=== PATIENT | female | born 1960 | race Caucasian/White ===

== ENCOUNTER 2024-11-08 20:42 | Emergency (ER) | payer BC, SELFPAY ==
[2024-11-08] VITALS (13 sets, daily range): BP systolic 120–131; BP diastolic 48–63; PULSE 52–66; RESP 10–20; TEMP 36.6; O2SAT 94–99
--- NOTE | ~2024-11-08 | XR_ITS ---
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 COMPARISON: None available TECHNIQUE: PA and lateral views of the chest. FINDINGS The cardiomediastinal silhouette is unremarkable. The lungs are clear. IMPRESSION: No focal infiltrate or effusion. Reviewed, dictated and finalized at location A.
--- OUTSIDE RECORDS SUMMARY | 2024-11-08 20:45 | XMS_ITS ---
Author Organization Unknown ENCOUNTERS Encounter Performer Location Date Diagnosis Diagnosis Status Pre Admit [facility] [address] [place] [id number] *Note: Encounters from your own facility or health system may be excluded. Allergies, Adverse Reactions, Alerts Allergen Type Severity Identification Date Penicillins drug allergy 3 [id number] Medications Name Date Quantity Days Supplied GPI Number
--- NOTE | 2024-11-08 20:47 | ECG_ITS ---
Test Date: 2024-11-08 20:48:45 Measurements Intervals [place] Rate: 64 P: 45 MI: 180 QRS: -16 QRSD: 84 T: 30 QT: 384 QTc: 396 Interpretive Statements SINUS RHYTHM LOW QRS VOLTAGE IN PRECORDIAL LEADS BORDERLINE R WAVE PROGRESSION, ANTERIOR LEADS BORDERLINE ECG No previous ECG available for comparison Electronically Signed On 11-09-2024 07:30:27 CDT by Ike Chavarria D.O.
[2024-11-08 21:05] LABS: Hematocrit 41.4 % (37.0-47.0); Hemoglobin 13.5 g/dL (12.0-15.0); Immature Granulocyte Percent A 0.3 % (0-0.5); Lymphocytes Absolute Auto 2.39 K/mm3 (0.9-3.2); Mean Corpuscular HGB Conc 32.6 g/dl (32-36); Mean Corpuscular Hemoglobin 29.9 pg (26-34); Mean Corpuscular Volume 91.6 fl (80-100); Nucleated Red Blood Cells Absolute Auto 0.000 K/mm3 (0.0-0.012); Nucleated Red Blood Cells Perc 0.0 % (0.0-0.2); Platelet Count Result 274 k/mm3 (150-375); Red Blood Count 4.52 M/mm3 (4.2-5.4); White Blood Count 7.0 K/mm3 (4.5-10.0)
[2024-11-08 21:21] LABS: INR 0.9; Prothrombin Time 12.5 Seconds (11.1-14.7)
[2024-11-08 21:22] LABS: Partial Thromboplastin Time 26.5 Seconds (22.3-36.8)
--- NOTE | 2024-11-08 22:16 | ED.CHESTPAIN ---
HPI - Chest Pain General Chief Complaint: Chest Pain Stated Complaint: chest pain Time Seen by Provider: 11/08/24 21:54 History of Present Illness HPI narrative: 64-year-old otherwise healthy female with no chronic medical conditions aside from previous peptic ulcer trip you to NSAID use presenting to the emergency department with left-sided chest discomfort and some pleuritic chest pain and shortness of breath. Symptoms onset for 2 days and the chest pain started earlier today. States that she feels like she can not get a good deep breath and she gets a squeezing sensation left side of her chest intermittent in nature. Worse with deep breathing but not worse with exertion or moving her extremity. States that her symptoms started today while she was eating dinner. Feels very focal in the left anterior portion of the chest that does not radiate towards the back of the neck/jaw. No other associated symptoms such as nausea, vomiting, abdominal pain, back pain, fever, chills, traumatic injuries. No history of DVT or PE, no recent long travel, immobilization or surgical procedures. Was otherwise in her normal state of health, does not take any chronic medications. Told she previously had an ulcer and cannot take NSAIDs. Endorses being a moderate drinker. Related Data Home Medications ?Medication ?Instructions ?Recorded ?Confirmed ?Last Taken ?Type No Home Medications 11/08/24 11/08/24 Unknown History Allergies Allergy/AdvReac Type Severity Reaction Status Date / Time ibuprofen Allergy Mild Ulcers Verified 11/08/24 21:00 Penicillins Allergy Unknown Skin Verified 11/08/24 21:00 Reaction Review of Systems Review of Systems: As reviewed above in HPI [facility] Family History Family History Other Family history of cardiovascular disease Social History Social History Smoking status: Never smoker Alcohol intake: never Exam Narrative: GENERAL: [Well-appearing, well-nourished, and in no acute distress.] HEAD: [Normocephalic, atraumatic.] EYES: [PERRLA and EOMI.] ENT: Nares clear, no rhinorrhea or epistaxis. Mucous membranes moist. NECK: Supple. CHEST: [Clear to auscultation. No respiratory distress.] Reproducible tenderness to palpation left anterior chest wall without any overlying skin changes, discoloration or excoriation HEART: [Regular rate and rhythm]. No murmur heard. [Normal peripheral pulses.] ABDOMEN: [Soft, nondistended], [nontender], [No rigidity or guarding] EXTREMITIES: Normal range of motion. [No edema.] SKIN: Warm, dry, no rash. NEURO: [No focal deficits]. Alert and oriented [x3.] PSYCH: [Normal mood and affect.] Course Vital Signs Vital signs: Vital Signs Temperature 36.6 C 11/08/24 20:47 Pulse Rate 61 11/08/24 20:47 Respiratory Rate 18 11/08/24 20:47 Blood Pressure 120/48 L 11/08/24 20:47 Pulse Oximetry 98 11/08/24 20:47 Oxygen Delivery Room Air 11/08/24 20:47 Temperature 36.6 C 11/08/24 20:47 Pulse Rate 55 L 11/09/24 01:52 Respiratory Rate 15 11/09/24 01:52 Blood Pressure 128/63 11/09/24 01:52 Pulse Oximetry 98 11/09/24 01:52 Oxygen Delivery Room Air 11/08/24 22:28 MDM - Chest Pain MDM Narrative Medical decision making narrative: 64-year-old otherwise healthy female with no chronic medical conditions aside from previous peptic ulcer trip you to NSAID use presenting to the emergency department with left-sided chest discomfort and some pleuritic chest pain and shortness of breath. Symptoms onset for 2 days and the chest pain started earlier today. States that she feels like she can not get a good deep breath and she gets a squeezing sensation left side of her chest intermittent in nature. Worse with deep breathing but not worse with exertion or moving her extremity. States that her symptoms started today while she was eating dinner. Feels very focal in the left anterior portion of the chest that does not radiate towards the back of the neck/jaw. No other associated symptoms such as nausea, vomiting, abdominal pain, back pain, fever, chills, traumatic injuries. No history of DVT or PE, no recent long travel, immobilization or surgical procedures. Was otherwise in her normal state of health, does not take any chronic medications. Told she previously had an ulcer and cannot take NSAIDs. Endorses being a moderate drinker. Patient is not any acute physical or respiratory distress and has reassuring vital signs without any hypertension, tachycardia, fever or hypoxia. No calf asymmetry signs of DVT on examination. Strong symmetric pulses in all extremities warm perfused extremities. Clear to auscultation with no murmurs. Symptomatology could be number of etiologies but she has no risk factors for ACS at this time, no real risk factors for thromboembolic disease or pneumonia. She does endorse drinking with a previous ulcer in the left chest discomfort could be GI in nature. Workup ordered including serial troponins, EKG, chest x-ray, D-dimer, CBC, CMP and lipase. She was given Pepcid and L of fluid and re-evaluated. Placed on quality assurance monitor chassis and pulse oximetry. Workup was reassuring. No leukocytosis or anemia. Normal platelet count. D-dimer is negative. INR normal. Electrolytes unremarkable. Normal creatinine, normal LFTs. Mildly elevated glucose. Negative troponin, negative delta troponin. Normal lipase. X-ray with no acute findings. EKG shows sinus rhythm, no ST segment elevations, depressions. Delta EKG with no ST segment elevations or depressions. Patient has normal vital signs here in an unremarkable cardiac workup. She is safe for discharge home with regular primary care provider follow-up. Medical Records Data Attestation: I reviewed the patient's medical records. Lab Data Attestation: I reviewed the patient's lab results. 11/08/24 20:59 11/08/24 22:09 Labs: Lab Results 11/08/24 11/08/24 11/08/24 Range/Units 20:59 21:03 22:09 WBC 7.0 (4.5-10.0) K/mm3 RBC 4.52 (4.2-5.4) M/mm3 Hgb 13.5 (12.0-15.0) g/dL Hct 41.4 (37.0-47.0) % MCV 91.6 (80-100) fl MCH 29.9 (26-34) pg MCHC 32.6 (32-36) g/dl RDW 13.5 (11.5-14.5) % Plt Count 274 (150-375) k/mm3 MPV 9.6 (7.4-10.4) fl Immature Gran % (Auto) 0.3 (0-0.5) % Neut % (Auto) 52.7 (45.5-73.1) % Lymph % (Auto) 34.2 (18.3-44.2) % [place] % (Auto) 8.6 H (2.6-8.5) % Eos % (Auto) 3.6 (0-4.4) % Baso % (Auto) 0.6 (0.2-1.2) % Lymph # (Auto) 2.39 (0.9-3.2) K/mm3 [place] # (Auto) 0.6 (0.1-0.6) K/mm3 Eos # (Auto) 0.3 (0-0.3) K/mm3 Baso # (Auto) 0.0 (0.0-0.1) K/mm3 Abs Immat Gran (auto) 0.02 (0.00-0.031) K/mm3 Absolute Neuts (auto) 3.7 (1.3-6.7) K/mm3 Absolute Nucleated RBC 0.000 (0.0-0.012) K/mm3 Nucleated RBC % 0.0 (0.0-0.2) % PT 12.5 (11.1-14.7) Seconds INR 0.9 APTT 26.5 (22.3-36.8) Seconds D-Dimer < 0.27 (<0.48) ug/mL Sodium 133 L (137-145) mmol/L Potassium 4.0 (3.4-5.0) mmol/L Chloride 102 (98-107) mmol/L Carbon Dioxide 25 (22-30) mmol/L Anion Gap 6 (4-12) mmol/L BUN 19 H (7-17) mg/dL Creatinine 0.74 (0.7-1.0) mg/dL Estim Creat Clear Calc 70 ml/min Estimated GFR > 60 (59 - ) Glucose 161 H (65-110) mg/dL Calcium 8.9 (8.4-10.2) mg/dL Total Bilirubin 0.3 (0.2-1.3) mg/dL AST 25 (14-36) U/L ALT 23 (6-35) U/L Alkaline Phosphatase 59 (38-126) U/L Troponin I < 0.012 (0.000-0.034) ng/mL Total Protein 6.5 (6.3-8.2) g/dL Albumin 3.9 (3.5-5.1) g/dL Lipase 61 (23-300) U/L 11/08/24 Range/Units 23:45 WBC (4.5-10.0) K/mm3 RBC (4.2-5.4) M/mm3 Hgb (12.0-15.0) g/dL Hct (37.0-47.0) % MCV (80-100) fl MCH (26-34) pg MCHC (32-36) g/dl RDW (11.5-14.5) % Plt Count (150-375) k/mm3 MPV (7.4-10.4) fl Immature Gran % (Auto) (0-0.5) % Neut % (Auto) (45.5-73.1) % Lymph % (Auto) (18.3-44.2) % [place] % (Auto) (2.6-8.5) % Eos % (Auto) (0-4.4) % Baso % (Auto) (0.2-1.2) % Lymph # (Auto) (0.9-3.2) K/mm3 [place] # (Auto) (0.1-0.6) K/mm3 Eos # (Auto) (0-0.3) K/mm3 Baso # (Auto) (0.0-0.1) K/mm3 Abs Immat Gran (auto) (0.00-0.031) K/mm3 Absolute Neuts (auto) (1.3-6.7) K/mm3 Absolute Nucleated RBC (0.0-0.012) K/mm3 Nucleated RBC % (0.0-0.2) % PT (11.1-14.7) Seconds INR APTT (22.3-36.8) Seconds D-Dimer (<0.48) ug/mL Sodium (137-145) mmol/L Potassium (3.4-5.0) mmol/L Chloride (98-107) mmol/L Carbon Dioxide (22-30) mmol/L Anion Gap (4-12) mmol/L BUN (7-17) mg/dL Creatinine (0.7-1.0) mg/dL Estim Creat Clear Calc ml/min Estimated GFR (59 - ) Glucose (65-110) mg/dL Calcium (8.4-10.2) mg/dL Total Bilirubin (0.2-1.3) mg/dL AST (14-36) U/L ALT (6-35) U/L Alkaline Phosphatase (38-126) U/L Troponin I < 0.012 (0.000-0.034) ng/mL Total Protein (6.3-8.2) g/dL Albumin (3.5-5.1) g/dL Lipase (23-300) U/L Imaging Data Attestation: I personally reviewed and interpreted this imaging study as follows: My impression: Impressions Chest X-Ray 11/08/24 21:26 IMPRESSION: No focal infiltrate or effusion. Discharge Plan Discharge Clinical Impression: Atypical chest pain Patient Disposition: Home Condition: Stable Instructions: Antibiotic Form, Chest Pain (ED), Chest Wall Pain (ED) Additional Instructions: All of your laboratory studies, imaging and EKGs are reassuring and normal. No signs of any blood clots, no signs of any cardiac issues or cardiac damage. No liver or kidney abnormalities. Normal electrolytes no signs of dehydration or any acute lung issues such as pneumonia or collapsed lung. Ultimately unclear source of her symptomatology but no urgent or emergent concerns were identified today and you are safe for follow-up with regular primary care provider and discharged home. Return with any emergent concerns or recurrent issues. Patient Language: [place] Prescriptions: No Action No Home Medications Follow-up/Referrals: UNKNOWN,DOCTOR [Non-Staff] - Time of Disposition: 01:06
[2024-11-08 22:34] LABS: Alanine Aminotransferase 23 U/L (6-35); Albumin Level 3.9 g/dL (3.5-5.1); Alkaline Phosphatase 59 U/L (38-126); Anion Gap 6 mmol/L (4-12); Aspartate Amino Transferase 25 U/L (14-36); Bilirubin,Total 0.3 mg/dL (0.2-1.3); Blood Urea Nitrogen 19 mg/dL (7-17); Calcium 8.9 mg/dL (8.4-10.2); Carbon Dioxide 25 mmol/L (22-30); Chloride 102 mmol/L (98-107); Estimated CRCL calculation 70 ml/min; Estimated Glomerular Filt Rate > 60; Glucose 161 mg/dL (65-110); Lipase 61 U/L (23-300); Potassium 4.0 mmol/L (3.4-5.0); Sodium 133 mmol/L (137-145); Total Protein 6.5 g/dL (6.3-8.2)
[2024-11-08] MEDS: LACTATED RINGERS 1,000 ML 999 ML IV CONT (22:35)
[2024-11-08] MEDS: FAMOTIDINE 20 MG/2 ML VIAL IV PUSH (22:35)
[2024-11-08 22:45] LABS: Troponin I < 0.012 ng/mL (0.000-0.034)
--- NOTE | 2024-11-08 23:48 | ECG_ITS ---
Test Date: 2024-11-08 23:50:04 Measurements Intervals [place] Rate: 60 P: 33 NM: 188 QRS: -12 QRSD: 97 T: 15 QT: 421 QTc: 422 Interpretive Statements SINUS RHYTHM WITH SINUS ARRHYTHMIA DELAYED PRECORDIAL R/S TRANSITION LOW QRS VOLTAGE IN PRECORDIAL LEADS BORDERLINE ECG Compared to ECG 11/08/2024 20:48:45 No significant changes Electronically Signed On 11-09-2024 07:34:27 CDT by Ike Chavarria D.O.
[2024-11-09] VITALS: PULSE 53; RESP 12; O2SAT 98
[2024-11-09 00:02] VITALS: BP 131/61; PULSE 57; RESP 13; O2SAT 96
[2024-11-09 00:28] LABS: Troponin I < 0.012 ng/mL (0.000-0.034)
[2024-11-09 01:51] VITALS: BP 128/63; PULSE 55; RESP 15; O2SAT 98
[2024-11-09 01:52] VITALS: BP 128/63; PULSE 55; RESP 15; O2SAT 98
== END 2024-11-09 02:01 | disposition home or self-care (01) ==
PROVIDERS: Emergency Provider Student in an Organized Health Care Education/Training Program
DX: R07.89 Other chest pain (principal)
CPT/HCPCS: 36415; 71046; 80053; 83690; 84484; 85025; 85380; 85610; 85730; 93005; 96361; 96374; 99284; J7120